=== PATIENT | male | born 1975 | race Asian ===

== ENCOUNTER 2016-08-05 18:46 | Emergency (ER) | payer OTHER ==
[~2016-08-05] VITALS: Ht 175.3 cm; Wt 70.0 kg
[2016-08-05 18:48] VITALS: Ht 175.3 cm; Wt 70.0 kg
[2016-08-05] MEDS ORDERED: IBUPROFEN 600 MG TAB PO ONE (19:00)
--- NOTE | 2016-08-05 20:10 | RADRPT ---
PROCEDURE: XR Hand. CLINICAL INDICATION: Trauma. Pain. TECHNIQUE: Three views of the right hand were obtained. COMPARISON: No prior studies are available for comparison. FINDINGS: No fracture is identified. Joint relationships are maintained. Bone mineralization is within jonas l limits. Soft tissues are unremarkable. IMPRESSION: No acute fracture. RPTAT: [facility] .Lino Parks MD, MD Date Time Electronically viewed and signed by .Lino Parks MD, on 08/05/2016 20:10 .K/
[2016-08-05] MEDS ORDERED: NAPR-688 PO (20:16)
[2016-08-05 20:32] VITALS: BP 142/80; PULSE 66; RESP 20; TEMP 98
--- NOTE | 2016-08-09 18:11 | ERD ---
DATE OF SERVICE: HISTORY OF PRESENT ILLNESS: This 40-year-old male who presents to the ER after he smashed his right hand in a slamming door at work. This occurred approximately 1 hour ago. There was no bleeding. He suffered no other injury. REVIEW OF SYSTEMS: A 12-point review of systems negative except as in the HPI. PAST MEDICAL HISTORY: Denies. PAST SURGICAL HISTORY: Denies. SOCIAL HISTORY: Denies tobacco, alcohol, or drugs. FAMILY HISTORY: Noncontributory to trauma. PHYSICAL EXAMINATION: VITAL SIGNS: Temperature 97.6, pulse 66, blood pressure 140/98, respirations 20, oxygen saturation 99% on room air. GENERAL: No acute distress. EXTREMITIES: Right hand with no deformities, tenderness over the mid metacarpal bone only, no wrist tenderness, capillary refill intact, radial pulse intact, no snuffbox tenderness. Normal appearing hand. IMAGING: X-ray of right hand interpreted by myself: I see no fracture or dislocation, no foreign b makayla, I see no soft tissue swelling. Normal right hand x-ray. EMERGENCY DEPARTMENT COURSE AND MEDICAL DECISION MAKING: The patient was placed in a premade hand s plint for his discomfort. He still did have pain after he received 600 mg ibuprofen in the emergenc y room. This is secondary to contusion and soft tissue injury. I am going to discharge him with na proxen 500 mg tabs b.i.d. for pain. Primary care followup in the next few days with orthopedic foll owup as needed. DISCHARGE DIAGNOSIS: Right hand contusion. DISPOSITION: Home in stable condition. Dictated By: MAL ELLIOTT Conf#: [id number] DID#: [id number]
== END 2016-08-05 20:34 | disposition home or self-care (01) ==
LOC: FTE 18:46
DX: S60.221A Contusion of right hand, initial encounter (principal); W23.0XXA Caught, crushed, jammed, or pinched between moving objects, initial encounter; Y92.89 Other specified places as the place of occurrence of the external cause
CPT/HCPCS: 73130; Z7502; Z7610

== ENCOUNTER 2017-03-16 07:11 | Day surgery (SDC) | payer OTHER ==
[2017-03-16] VITALS (13 sets, daily range): BP systolic 93–115; BP diastolic 63–77; PULSE 64–78; RESP 14–64; Ht 172.7 cm; Wt 62.0 kg
[~2017-03-16] VITALS: Ht 172.7 cm; Wt 62.0 kg
[~2017-03-16 07:11] MED LIST: LIDOCAINE 1% (MPF) 30 ML INJ INJ ONE; NAPR-688 PO
[2017-03-16] MEDS ORDERED: LACO200T2 PO (08:05)
[2017-03-16] MEDS ORDERED: LEVE10006 PO ×2 (08:06→08:07)
[2017-03-16] MEDS ORDERED: EPHEDrine SULFATE 50 MG/5 ML SYG IV PRN (09:30)
[2017-03-16] MEDS ORDERED: DIPHENHYDRAMINE 50 MG INJ IV PRN (09:30)
[2017-03-16] MEDS ORDERED: hydrALAzine 20 MG INJ IV PRN (09:30)
[2017-03-16] MEDS ORDERED: LABETALOL HCL 20MG INJ IV PRN (09:30)
[2017-03-16] MEDS ORDERED: FENTAnyl 50 MCG/ML VIAL IV PRN ×3 (09:30)
[2017-03-16] MEDS ORDERED: OXYCODONE/ACETAMINOPHEN (5/325) TAB PO PRN ×2 (09:30)
[2017-03-16] MEDS ORDERED: morphine (1 MG/ML) 10ML SYRINGE IV PRN ×3 (09:30)
[2017-03-16] MEDS ORDERED: MEPERIDINE 25 MG INJ IV PRN (09:30)
[2017-03-16] MEDS ORDERED: KETOROLAC 30 MG INJ IV PRN (09:30)
[2017-03-16] MEDS ORDERED: LIDOCAINE 1% (STERILE-PAK) 30 ML INJ ONE (09:30)
[2017-03-16] MEDS ORDERED: ONDANSETRON 4 MG INJ IV PRN (09:30)
[2017-03-16] MEDS ORDERED: MIDAZOLAM 1 MG/ML 2 ML INJ ONE ×2 (09:39)
[2017-03-16] MEDS ORDERED: FENTAnyl 50 MCG/ML VIAL ONE (09:40)
--- NOTE | 2017-03-16 10:19 | EN ---
Date/Time of Note Date/Time of Note DATE: 03/16/17 TIME: 10:15 Event Note Medicine Medicine Event Note This is a bronchoscopy note. Patient has been evaluated in the outpatient clinic by Dr. Orona for chronic cough. A bronchoalveolar lavage was advised from right middle lobe as well as a transbronchial biopsy from the same area. The patient was evaluated by myself in the preop holding area. A comprehensive history was again obtained. Informed consent was obtained from the patient. Risk of bleeding from transbronchial biopsy as well as risk of pneumothorax were explained to the patient, he consented to the procedure. Patient was sedated by the anesthesiologist in OR. Topical anesthesia was achieved by instilling 1% lidocaine in the pharynx. Bronchoscope was introduced via mouth. Pharynx was normal, vocal cords were normal, bronchoscope was then introduced into the trachea which was normal, jonh was sharp and well defined. The scope was introduced into the left mainstem bronchus with evaluation of the left upper lobe, lingula, superior segment of the lower lobe and lower lobes they were all normal. The scope was introduced into the right mainstem bronchus with evaluation of the right upper lobe, bronchus intermedius, middle lobe, superior segment of the lower lobe, and lower lobes they were all completely normal and free of any endobronchial pathology except for mild mucus. The scope was then wedged in the right middle lobe and after instilling 45 mL of normal saline BAL was performed with a good return. This was followed by 2 transbronchial biopsies from right middle lobe area. There was minimal bleeding after the biopsy. The scope was then withdrawn. Patient tolerated the procedure very well with stable vital signs. A stat chest x-ray been ordered to rule out pneumothorax. MARIA G AZUL Mar 16, 2017 10:19
--- NOTE | 2017-03-16 10:58 | OPPN ---
Date/Time of Note Date/Time of Note DATE: 03/16/17 TIME: 10:55 Operative Report Free Text/Dictation Bronchoscopy Preoperative Diagnosis Chronic cough with areas of bronchiectasis involving the right lung. Postoperative Diagnosis Normal bronchoscopy. Operation/Procedure Performed Bronchoscopy performed. Informed consent was obtained earlier including the risk of bleeding from transbronchial biopsy as well as risk of pneumothorax. Patient was sedated by the anesthesiologist. Was not intubated for the procedure. Bronchoscope was introduced via mouth. Pharynx was normal, vocal cords were normal, scope was introduced into the trachea, which was normal. Esther was sharp and well defined. The scope was then introduced into the left mainstem bronchus, with evaluation of the left upper lobe, lingula, superior segment of the lower lobe and lower lobes they were all normal. The scope was introduced into the right mainstem bronchus with evaluation of the right upper lobe, bronchus intermedius, superior segment of the lower lobe lower lobes and middle lobes were all normal except for very minimal new. The scope was then placed in the right middle lobe and after instilling 45 mL of normal saline BAL was performed with good return. This was followed by 2 transbronchial biopsies from right middle lobe. There was very minimal bleeding after the biopsy. The scope was then. The patient maintained stable vital signs cardiac rhythm and O2 saturation. Stat chest x-ray has been ordered to rule out pneumothorax. Topical anesthesia was achieved by instilling 1% lidocaine above the cords and 1 % below the cords. Start time was 9:50 AM finish time was 10 AM. Estimated blood loss: minimal Transfusion Required: no Specimens BAL from right middle lobe and transbronchial biopsies from right middle lobe. Grafts/Implants: none Complications: no MARIA G AZUL Mar 16, 2017 10:58
--- NOTE | 2017-03-16 11:16 | RADRPT ---
PROCEDURE: XR Chest. CLINICAL INDICATION: Pneumothorax status post transbronchial biopsy TECHNIQUE: Single frontal view of the chest was obtained. COMPARISON: None. FINDINGS: The heart and mediastinum are within normal limits. The lungs are clear. There is no significant pleural effusion or pneumothorax. IMPRESSION: No pneumothorax. RPTAT: EE Physician Deja Date Time Electronically viewed and signed by Quinten Cisse Physician on 03/16/2017 11:16 /
== END 2017-03-16 12:11 | disposition home or self-care (01) ==
LOC: SDS 07:11
PROVIDERS: ATTEND Internal Medicine Pulmonary Disease
DX: J44.9 Chronic obstructive pulmonary disease, unspecified (principal)
CPT/HCPCS: 31625; 71010; 87070; 87102; 87116; 88104; 88305; J2250; J3010; Z7512; Z7610